=== PATIENT | male | born 1995 | race African-American/Black ===

== ENCOUNTER 2018-11-05 06:00 | Emergency (ER) | payer MEDICAID ==
[~2018-11-05] VITALS: Ht 180.3 cm; Wt 72.6 kg
[2018-11-05 06:04] VITALS: BP 136/86
[2018-11-05] MEDS: NACL 0.9% 1,000 ML IV ONE (06:22)
[2018-11-05] MEDS: ONDANSETRON 4 MG ODT PO ONE (06:28)
[2018-11-05 06:42] LABS: BASOPHILS # (AUTO) 0.1 K/uL (0.00-0.22); BASOPHILS % (AUTO) 0.5 % (0.0-2.0); EOSINOPHILS % (AUTO) 0.1 % (0.0-4.0); HEMOGLOBIN 16.3 g/dL (12.0-18.0); LYMPHOCYTES # (AUTO) 1.1 K/uL (2.0-11.5); LYMPHOCYTES % (AUTO) 10.4 % (20.5-51.1); MEAN CORPUSCULAR HEMOGLOBIN 31 pg (27-31); MEAN CORPUSCULAR HGB CONC 34 g/dL (33-37); MONOCYTES # (AUTO) 0.4 K/uL (0.8-1.0); MONOCYTES % (AUTO) 3.3 % (1.7-9.3); NEUTROPHILS # (AUTO) 9.4 K/uL (1.8-7.7); NEUTROPHILS % (AUTO) 85.7 % (42.2-75.2); PLATELET COUNT (AUTO) 253 K/uL (140-450); RED BLOOD CELL COUNT(AUTO) 5.27 MIL/uL (4.20-6.10); RED CELL DISTRIBUTION WIDTH 13.1 % (11.6-13.7); WHITE BLOOD COUNT (AUTO) 10.9 K/uL (4.8-10.8)
[2018-11-05] MEDS: PROMETHAZINE 25 MG/ML VIAL IVP ONE (06:43)
[2018-11-05 06:51] LABS: ANION GAP 15.6 (8-16); CARBON DIOXIDE 28.7 mmol/L (21-32); POTASSIUM 3.3 mmol/L (3.5-5.1)
[2018-11-05] MEDS: KETOROLAC 30 MG/ML VIAL IVP ONE (06:56)
[2018-11-05 06:57] LABS: TOTAL BILIRUBIN 0.9 mg/dL (0.0-1.0)
[2018-11-05] MEDS: MORPHINE SULFATE 4 MG/ML SYR IVP ONE (07:16)
[2018-11-05] MEDS: NACL 0.9% 1,000 ML IV SCH (07:18)
[2018-11-05 07:49] VITALS: BP 114/87
== END 2018-11-05 07:49 | disposition home or self-care (01) ==
LOC: MED 06:00
DX: R10.12 Left upper quadrant pain (principal); R11.2 Nausea with vomiting, unspecified; R19.7 Diarrhea, unspecified; R50.9 Fever, unspecified; F17.200 Nicotine dependence, unspecified, uncomplicated
CPT/HCPCS: 36415; 80053; 83690; 85025; 96361; 96374; 96375; 99283; J1885; J2270; J2550; Q0162; J7030

== ENCOUNTER 2019-03-01 16:37 | Inpatient (IN) | payer MEDICAID ==
[~2019-03-01] VITALS: Ht 180.3 cm; Wt 76.3 kg
[2019-03-01 16:45] VITALS: BP 152/106
--- NOTE | 2019-03-01 17:05 | NUR ---
c/o generalized abdominal pain with repeated emesis/ dry heaving, severe nauea x yesterday denies heavy etoh use but admits to daily marijuana use
[2019-03-01] MEDS ORDERED: KETOROLAC 30 MG/ML VIAL IVP ONE (17:10)
[2019-03-01] MEDS ORDERED: diphenhydrAMINE 50 MG/ML VIAL IVP ONE (17:10)
[2019-03-01] MEDS ORDERED: METOCLOPRAMIDE 10 MG/2 ML INJ VIAL IVP ONE (17:10)
[2019-03-01] MEDS ORDERED: NACL 0.9% 1,000 ML IV ONE ×2 (17:10→18:35)
[2019-03-01 17:28] LABS: BASOPHILS % (AUTO) 0.2 % (0.0-2.0); HEMATOCRIT 51.2 % (36-52); HEMOGLOBIN 17.9 g/dL (12.0-18.0); LYMPHOCYTES # (AUTO) 1.2 K/uL (2.0-11.5); LYMPHOCYTES % (AUTO) 6.8 % (20.5-51.1); MEAN CORPUSCULAR HEMOGLOBIN 31 pg (27-31); MEAN CORPUSCULAR HGB CONC 35 g/dL (33-37); MEAN CORPUSCULAR VOLUME 88.9 fL (80-94); MONOCYTES # (AUTO) 1.7 K/uL (0.8-1.0); NEUTROPHILS # (AUTO) 14.4 K/uL (1.8-7.7); PLATELET COUNT (AUTO) 318 K/uL (140-450); RED BLOOD CELL COUNT(AUTO) 5.76 MIL/uL (4.20-6.10); RED CELL DISTRIBUTION WIDTH 12.6 % (11.6-13.7); WHITE BLOOD COUNT (AUTO) 17.3 K/uL (4.8-10.8)
--- NOTE | 2019-03-01 17:32 | NUR ---
labs drawn at iv start and handed to norman lab tester
[2019-03-01 17:44] LABS: ALBUMIN 5.5 g/dL (3.4-5.0); CARBON DIOXIDE 29.7 mmol/L (21-32); POTASSIUM 3.7 mmol/L (3.5-5.1); TOTAL BILIRUBIN 1.2 mg/dL (0.0-1.0)
--- NOTE | 2019-03-01 18:27 | NUR ---
speaking with pt---pt's creatinine level at 3 admits n/v reduced at this time
--- NOTE | 2019-03-01 18:40 | NUR ---
UA SENT TO LAB
[2019-03-01 18:45] LABS: APPEARANCE,URINE HAZY (CLEAR); BILIRUBIN,URINE 2+ (NEGATIVE); BLOOD, URINE TRACE-L (NEGATIVE); COLOR,URINE YELLOW (YELLOW); LEUKOCYTE ESTERASE ,URINE 1+ (NEGATIVE); NITRITE, URINE NEGATIVE (NEGATIVE); PH,URINE 5.5 (5.0-9.0); UGLUCOSE NEGATIVE (NEGATIVE)
[2019-03-01 18:50] LABS: WBC,URINE 20-60 /HPF (0-5)
[2019-03-01] MEDS ORDERED: ACETAMINOPHEN 325 MG TAB PO PRN (19:00)
[2019-03-01] MEDS ORDERED: LORazepam 2 MG/ML VIAL IM/IVP PRN (19:00)
[2019-03-01] MEDS ORDERED: DOCUSATE SODIUM 100 MG GELCAP PO PRN (19:00)
[2019-03-01] MEDS ORDERED: ZOLPIDEM 5 MG TAB PO PRN (19:00)
[2019-03-01] MEDS ORDERED: ONDANSETRON 4 MG/2 ML VIAL IM/IVP PRN (19:00)
[2019-03-01] MEDS ORDERED: MORPHINE SULFATE 2 MG/ML SYR IVP PRN (19:00)
[2019-03-01] MEDS ORDERED: HYDROcodone/APAP 5/325 MG 1 TAB TAB PO PRN (19:00)
[2019-03-01] MEDS ORDERED: ONDA4TAB PO (19:05)
[2019-03-01] MEDS ORDERED: PHE25S PO (19:05)
[2019-03-01] MEDS ORDERED: HYDR-5092 PO (19:05)
--- NOTE | 2019-03-01 19:17 | NUR ---
RECEIVED REPORT FROM CRUZ KINSEY.
--- NOTE | 2019-03-01 19:20 | NUR ---
PT RETURN FROM RAD.
--- NOTE | 2019-03-01 19:46 | NUR ---
Patient will be admitted to care of Dr. Ramirez. Admited to MS. Will go to room 119-B. Belongings list completed. Report to CRUZ Nieto.
[2019-03-01] MEDS ORDERED: NACL 0.9% 500 ML IV ONE (19:50)
--- NOTE | 2019-03-01 19:50 | NUR ---
Patient arrived in unit via wheelchair, accompanied by PROVIDER RELATIONS MANAGER and mother. Patient was able to ambulate from wheelchair to bed with no assistance. Patient is A/Ox4, able to make needs known, ambulatory. Introduced self, updated board, oriented patient to room and hospital environment. Chief complaint of abdominal pain, nausea and vomiting x 1 day, diagnosis is abdominal pain, nausea and vomiting, acute kidney injury. IV site on left antecubital, 20 gauge, intact, running IVF. Skin intact. Vitals upon admission are as follows: BP 129/79, RR 16, HR 89, Temp 98.3, O2Sat 98% on room air. Bed in the lowest position, call light within reach. Initial assessment done. Will continue to monitor.
[2019-03-01] MEDS ORDERED: KETOROLAC 15 MG/ML VIAL IVP PRN (20:15)
[2019-03-01 20:41] LABS: PROTHROMBIN TIME 10.8 secs (10.8-13.4)
[2019-03-01 20:48] LABS: MAGNESIUM 2.7 mg/dL (1.8-2.4); PHOSPHORUS 4.2 mg/dL (2.5-4.9); THYROID STIMULATING HORMONE 1.25 uIU/mL (0.34-3.74)
[2019-03-01] MEDS ORDERED: ALUMINUM HYD/MAG/SIMETHICONE 30 ML UDC PO SCH (21:00)
[2019-03-01] MEDS ORDERED: DICYCLOMINE HCL LIQUID 10 MG/5 ML UDC PO SCH (21:00)
[2019-03-01] MEDS ORDERED: LIDOCAINE VISCOUS 2% 20 ML UDC PO SCH (21:00)
[2019-03-01] MEDS: metroNIDAZOLE 500 MG/NS PREMIX 100 ML IV SCH (21:53)
[2019-03-01] MEDS: DEXT 5% /NACL 0.9% 1,000 ML IV SCH (21:53)
--- NOTE | 2019-03-01 21:55 | NUR ---
Due meds given, tolerated well.
[2019-03-01] MEDS ORDERED: cefTRIAXone 1,000 MG VIAL ONE (22:29)
--- NOTE | 2019-03-01 23:40 | NUR ---
Vitals taken, no SOB or distress noted.
[2019-03-02] VITALS: BP 127/74
--- NOTE | 2019-03-02 02:02 | NUR ---
Checks made; patient asleep, eyes closed, visible chest rise and fall noted. Patient sleeping on left lateral side.
[2019-03-02] MEDS: DEXT 5% /NACL 0.9% 1,000 ML IV SCH (03:42)
--- NOTE | 2019-03-02 04:45 | NUR ---
Rounds done, no distress noted.
[2019-03-02] MEDS: metroNIDAZOLE 500 MG/NS PREMIX 100 ML IV SCH (05:03)
--- NOTE | 2019-03-02 06:22 | NUR ---
Patient asleep, eyes closed, visible chest rise and fall noted.
[2019-03-02] MEDS ORDERED: NACL 0.9% 1,000 ML IV SCH (06:45)
[2019-03-02 07:16] LABS: CHOL/HDL RATIO 6.1 (1-4.5)
--- NOTE | 2019-03-02 07:25 | NUR ---
Endorsed patient to AM shift RN for continuity of care; patient in stable condition.
--- NOTE | 2019-03-02 07:26 | NUR ---
RECEIVED ENDORSEMENT FROM BUTTON SEWING MACHINE OPERATOR NURSE. PT IS AAOX4, RESPIRATIONS ARE EVEN AND UNLABORED ON ROOM AIR. DENIES ANY N/V OR ABDOMINAL PAIN. LEFT AC 20 G IV INTACT, PATENT AND INFUSING IVF. PLAN OF CARE WAS REVIEWED WITH PT. PT VERBALIZED UNDERSTANDING. SAFETY MEASURES IN PLACE, CALL LIGHT WITHIN REACH. WILL CONTINUE TO MONITOR.
[2019-03-02 08:00] VITALS: BP 111/60
[2019-03-02] MEDS ORDERED: PANTOPRAZOLE 40 MG INJ VIAL IVP SCH (09:00)
--- NOTE | 2019-03-02 10:05 | NUR ---
PT WISHES TO BE DISCHARGED. DR. BOND HAS BEEN MADE AWARE.
--- NOTE | 2019-03-02 11:30 | NUR ---
Pt verbalized he wants to go home because he feels better. Dr. Victor at bedside to speak with pt.
--- NOTE | 2019-03-02 12:30 | NUR ---
PT LEFT AMA AT THIS TIME. ABLE TO AMBULATE OFF UNIT WITH STEADY GAIT. LEFT AC IV REMOVED, NO BLEEDINGS, CANNULA INTACT. ALL BELONGINGS WITH PT UPON DEPARTURE. PT SIGNED AMA FORM.
[2019-03-03 06:29] LABS: T4 (THYROXINE) 8.3 ug/dL (4.5-12.0)
== END 2019-03-02 12:30 | disposition left against medical advice (07) | DRG 720 ==
LOC: MED 16:37 → MTU 19:05 → UNDOADMIN 19:05 → MTU 19:41
PROVIDERS: ADMIT General Practice; ATTEND General Practice
DX: A41.9 Sepsis, unspecified organism (principal); N17.0 Acute kidney failure with tubular necrosis; N39.0 Urinary tract infection, site not specified; Z53.21 Procedure and treatment not carried out due to patient leaving prior to being seen by health care provider; F17.210 Nicotine dependence, cigarettes, uncomplicated; E87.8 Other disorders of electrolyte and fluid balance, not elsewhere classified; E83.52 Hypercalcemia; R73.9 Hyperglycemia, unspecified; R65.20 Severe sepsis without septic shock; E86.0 Dehydration; K92.9 Disease of digestive system, unspecified; F12.188 Cannabis abuse with other cannabis-induced disorder; I10 Essential (primary) hypertension; E83.41 Hypermagnesemia; E78.5 Hyperlipidemia, unspecified; Z79.899 Other long term (current) drug therapy
CPT/HCPCS: 36415; 71045; 76705; 80053; 81001; 82150; 83036; 83605; 83690; 83735; 83880; 84100; 84436; 84443; 84484; 85025; 85610; 85730; 87040; 87081; 87086; 93005; 96361; 96374; 96375; 99285; J0696; J1200; J1885; J2765; J3490; J7042; J7060; Q0092

== ENCOUNTER 2019-03-03 14:18 | Emergency (ER) | payer MEDICAID ==
[~2019-03-03] VITALS: Ht 180.3 cm; Wt 79.4 kg
[~2019-03-03 14:18] MED LIST: HYDR-5092 PO; ONDA4TAB PO; PHE25S PO
[2019-03-03 14:24] VITALS: BP 118/101
--- NOTE | 2019-03-03 14:35 | NUR ---
BIB MOTHER. PT AAO X4 C/O N/V & RUQ ABDOMINAL PAIN 07/28. DISCHARGE FROM [facility] HERE YESTERDAY. PT STATES DIZZINES. STEADY GAIT. PT PLACED ON FULL PUBLIC WORKS MANAGER. HOB UP BED SIDE RAILS UP X1. ON LOW BED POSITION, LOCKED. ER MADE AWARE OF PT STATUS.
--- NOTE | 2019-03-03 14:35 | NUR ---
PT AMB TO BED 1
--- NOTE | 2019-03-03 14:40 | NUR ---
PT UNABLE TO GIVE URINE SPECIME AT THIS TIME. WILL TRY AGAIN LATER
[2019-03-03] MEDS ORDERED: ONDANSETRON 4 MG/2 ML VIAL IVP ONE (14:50)
[2019-03-03] MEDS ORDERED: FAMOTIDINE 20 MG/2 ML VIAL IVP ONE (14:50)
[2019-03-03] MEDS ORDERED: DICYCLOMINE HCL LIQUID 20 MG, ALUMINUM HYD/MAG/SIMETHICONE 30 ML, LIDOCAINE VISCOUS 2% ... PO ONE ×3 (14:50)
--- NOTE | 2019-03-03 15:00 | NUR ---
MEDICATED PER ERMDS ORDER, TOLERATED WELL.
[2019-03-03 15:15] LABS: BASOPHILS % (AUTO) 0.3 % (0.0-2.0); EOSINOPHILS # (AUTO) 0.1 K/uL (0-0.4); EOSINOPHILS % (AUTO) 0.6 % (0.0-4.0); HEMATOCRIT 43.5 % (36-52); LYMPHOCYTES # (AUTO) 1.8 K/uL (2.0-11.5); LYMPHOCYTES % (AUTO) 15.8 % (20.5-51.1); MEAN CORPUSCULAR HEMOGLOBIN 31 pg (27-31); MEAN CORPUSCULAR HGB CONC 35 g/dL (33-37); MEAN CORPUSCULAR VOLUME 89.7 fL (80-94); MONOCYTES # (AUTO) 1.1 K/uL (0.8-1.0); MONOCYTES % (AUTO) 10.1 % (1.7-9.3); NEUTROPHILS # (AUTO) 8.3 K/uL (1.8-7.7); NEUTROPHILS % (AUTO) 73.2 % (42.2-75.2); PLATELET COUNT (AUTO) 243 K/uL (140-450); RED BLOOD CELL COUNT(AUTO) 4.85 MIL/uL (4.20-6.10); RED CELL DISTRIBUTION WIDTH 12.3 % (11.6-13.7); WHITE BLOOD COUNT (AUTO) 11.3 K/uL (4.8-10.8)
[2019-03-03] MEDS ORDERED: NACL 0.9% 1,000 ML IV ONE (15:25)
[2019-03-03] MEDS ORDERED: DICYCLOMINE 20 MG/2 ML VIAL IM ONE ×2 (15:40→15:55)
[2019-03-03 15:41] LABS: ALBUMIN 4.6 g/dL (3.4-5.0); ANION GAP 14.5 (8-16); CARBON DIOXIDE 28.5 mmol/L (21-32); CREATININE 1.1 mg/dL (0.7-1.3); TOTAL BILIRUBIN 1.5 mg/dL (0.0-1.0)
[2019-03-03] MEDS ORDERED: MORPHINE SULFATE 2 MG/ML SYR IVP ONE (16:00)
[2019-03-03 16:02] LABS: APPEARANCE,URINE SL CLOUDY (CLEAR); BILIRUBIN,URINE NEGATIVE (NEGATIVE); BLOOD, URINE NEGATIVE (NEGATIVE); COLOR,URINE YELLOW (YELLOW); LEUKOCYTE ESTERASE ,URINE NEGATIVE (NEGATIVE); NITRITE, URINE NEGATIVE (NEGATIVE); PH,URINE 8.5 (5.0-9.0); UGLUCOSE NEGATIVE (NEGATIVE)
--- NOTE | 2019-03-03 16:10 | NUR ---
PT ASLEEP. EASILY AROUSABLE BY NAME. NO SIGNS AND SYMPTOMS OF DISTRESS NOTED. FULL CLEAR SPEECH.
[2019-03-03] MEDS ORDERED: POTASSIUM CHLORIDE 10 MEQ TABER PO SCH (16:40)
[2019-03-03 17:45] VITALS: BP 135/89
--- NOTE | 2019-03-03 17:45 | NUR ---
Patient discharged with v/s stable. Written and verbal after care instructions given and explained. Patient alert, oriented and verbalized understanding of instructions. Ambulatory with steady gait. All questions addressed prior to discharge. ID band removed. Patient advised to follow up with PMD. Rx of Omeprazole given. Patient educated on indication of medication including possible reaction and side effects. Opportunity to ask questions provided and answered.
== END 2019-03-03 17:45 | disposition home or self-care (01) ==
LOC: MED 14:18
DX: K29.70 Gastritis, unspecified, without bleeding (principal); F17.210 Nicotine dependence, cigarettes, uncomplicated; Z79.891 Long term (current) use of opiate analgesic; Z79.899 Other long term (current) drug therapy
CPT/HCPCS: 36415; 80053; 81003; 83690; 85025; 96372; 96374; 96375; 99283; J0500; J2270; J2405; J3490; J7030; 99284

== ENCOUNTER 2019-05-07 20:09 | Emergency (ER) | payer MEDICAID ==
[~2019-05-07] VITALS: Ht 180.3 cm; Wt 81.6 kg
[2019-05-07 20:10] VITALS: BP 129/70
--- NOTE | 2019-05-07 20:26 | NUR ---
23 yo male sweta comes to ed for c/o n/v x20 hours. pt denies fever, or night sweats. pt denies dizziness or tingling. pt has c/o of Right flank pain 10/10 achiness. pt was recently seen in ED x1 week ago. pt states he will have bacterial stomach test this thursday. active bsx4, 300 ml dark green emesis noted. mila locked in lowest position. will update ERMD. hx: nausea NKA
[2019-05-07] MEDS ORDERED: ONDANSETRON 4 MG/2 ML VIAL IVP ONE (20:35)
[2019-05-07] MEDS ORDERED: NACL 0.9% 1,000 ML IV ONE ×2 (20:35→21:40)
--- NOTE | 2019-05-07 21:32 | NUR ---
DR. TABARES @ BEDSIDE
[2019-05-07] MEDS ORDERED: fentaNYL 0.05 MG/ML VIAL IVP ONE (21:40)
--- NOTE | 2019-05-07 22:17 | NUR ---
MOM CONTACT # [phone]. TO CALL PROR TO D/C TO SECOND SHIFT SUPERVISOR PT
[2019-05-07 22:18] LABS: BASOPHILS % (AUTO) 0.3 % (0.0-2.0); EOSINOPHILS % (AUTO) 0.1 % (0.0-4.0); HEMATOCRIT 39.7 % (36-52); HEMOGLOBIN 13.4 g/dL (12.0-18.0); LYMPHOCYTES # (AUTO) 0.6 K/uL (2.0-11.5); LYMPHOCYTES % (AUTO) 3.8 % (20.5-51.1); MEAN CORPUSCULAR HEMOGLOBIN 30 pg (27-31); MEAN CORPUSCULAR HGB CONC 34 g/dL (33-37); MEAN CORPUSCULAR VOLUME 88.9 fL (80-94); MONOCYTES # (AUTO) 0.8 K/uL (0.8-1.0); MONOCYTES % (AUTO) 4.9 % (1.7-9.3); NEUTROPHILS # (AUTO) 14.1 K/uL (1.8-7.7); NEUTROPHILS % (AUTO) 90.9 % (42.2-75.2); PLATELET COUNT (AUTO) 272 K/uL (140-450); RED BLOOD CELL COUNT(AUTO) 4.47 MIL/uL (4.20-6.10); RED CELL DISTRIBUTION WIDTH 12.2 % (11.6-13.7); WHITE BLOOD COUNT (AUTO) 15.5 K/uL (4.8-10.8)
[2019-05-07 22:30] LABS: ANION GAP 16.2 (8-16); POTASSIUM 3.2 mmol/L (3.5-5.1)
[2019-05-07 22:36] LABS: TOTAL BILIRUBIN 0.6 mg/dL (0.0-1.0)
--- NOTE | 2019-05-07 22:51 | NUR ---
PT TAKEN TO RADIOLOGY FOR CT SCAN
--- NOTE | 2019-05-07 23:16 | NUR ---
PT VOIDED 300 ML MICHAEL URINE. URINE SAMPLE TAKEN
[2019-05-07] MEDS ORDERED: ALUMINUM HYD/MAG/SIMETHICONE 30 ML UDC PO ONE (23:25)
[2019-05-07] MEDS ORDERED: FAMOTIDINE 20 MG/2 ML VIAL IVP ONE (23:25)
[2019-05-07] MEDS ORDERED: LIDOCAINE VISCOUS 2% 20 ML UDC PO ONE (23:25)
[2019-05-07] MEDS ORDERED: METOCLOPRAMIDE 10 MG/2 ML INJ VIAL IVP ONE (23:30)
[2019-05-07 23:37] LABS: APPEARANCE,URINE HAZY (CLEAR); BILIRUBIN,URINE NEGATIVE (NEGATIVE); BLOOD, URINE NEGATIVE (NEGATIVE); COLOR,URINE YELLOW (YELLOW); LEUKOCYTE ESTERASE ,URINE NEGATIVE (NEGATIVE); NITRITE, URINE NEGATIVE (NEGATIVE); PH,URINE >=9.0 (5.0-9.0); UGLUCOSE NEGATIVE (NEGATIVE)
[2019-05-07 23:38] LABS: BARBITURATE, URINE NEG. ng/ml (NEG <=200); BENZODIAZEPINE, URINE NEG. ng/mL (NEG <=200); CANNABINOID, URINE POS. ng/mL (NEG <=50); COCAINE, URINE NEG. ng/mL (NEG <=300); OPIATE, URINE NEG. ng/mL (NEG <=2000); PHENCYCLIDINE SCREEN,URINE NEG. ng/mL (NEG <=25)
[2019-05-07 23:49] LABS: RBC,URINE 0-5 /HPF (0-5); WBC,URINE 0-5 /HPF (0-5)
--- NOTE | 2019-05-08 00:43 | NUR ---
MD @ BEDSIDE TALKING TO MOTHER AND PT
[2019-05-08 01:15] VITALS: BP 128/92
--- NOTE | 2019-05-08 01:15 | NUR ---
Patient discharged with v/s stable. Written and verbal after care instructions given and explained. Patient verbalized understanding. Ambulatory with steady gait. All questions addressed prior to discharge. Advised to follow up with PMD.
== END 2019-05-08 01:15 | disposition home or self-care (01) ==
LOC: MED 20:09
DX: K52.9 Noninfective gastroenteritis and colitis, unspecified (principal); F12.10 Cannabis abuse, uncomplicated; Z79.891 Long term (current) use of opiate analgesic; Z79.899 Other long term (current) drug therapy
CPT/HCPCS: 36415; 71045; 74177; 80053; 80305; 81001; 83690; 85025; 96361; 96374; 96375; 99284; J2405; J2765; J3010; J3490; J7030; Q9967

== ENCOUNTER 2019-09-10 14:59 | Emergency (ER) | payer MEDICAID ==
[~2019-09-10] VITALS: Ht 180.3 cm; Wt 77.1 kg
[2019-09-10 15:02] VITALS: BP 147/88
--- NOTE | 2019-09-10 15:08 | NUR ---
Patient ambulated to bed 2. RN evaluating patient at bedside.
--- NOTE | 2019-09-10 15:12 | NUR ---
Dr. Mcconnell is evaluating the patient at bedside.
[2019-09-10] MEDS ORDERED: ONDANSETRON 4 MG/2 ML VIAL IVP ONE (15:50)
[2019-09-10] MEDS ORDERED: NACL 0.9% 1,000 ML IV ONE (15:50)
--- NOTE | 2019-09-10 15:51 | NUR ---
PATIENT COMPLAINS OF NAUSEA, VOMITTING, AND DIARRHEA X 2 DAYS. PATIENT STATES HE HAS BEEN UNABLE TO EAT OR DRINK IN THE PAST 2 DAYS. PATIENT FEELS WEAKNESS, CRAMPING THROUGHOUT BODY. PATIENT AWAKE AND ALERT, RESPIRATION EVEN AND UNLABORED, SKIN NORMAL COLOR, WARM, DRY. ABDOMEN SOFT, FLAT, NONTENDER. HX - GASTROPARESIS
[2019-09-10] MEDS ORDERED: HALOPERIDOL IM 5 MG/ML VIAL IM ONE (16:05)
[2019-09-10 16:13] LABS: BASOPHILS % (AUTO) 0.2 % (0.0-2.0); EOSINOPHILS % (AUTO) 0.1 % (0.0-4.0); HEMATOCRIT 51.1 % (36-52); HEMOGLOBIN 17.3 g/dL (12.0-18.0); LYMPHOCYTES # (AUTO) 1.4 K/uL (2.0-11.5); LYMPHOCYTES % (AUTO) 7.8 % (20.5-51.1); MEAN CORPUSCULAR HEMOGLOBIN 31 pg (27-31); MEAN CORPUSCULAR HGB CONC 34 g/dL (33-37); MEAN CORPUSCULAR VOLUME 90.9 fL (80-94); MONOCYTES # (AUTO) 2.2 K/uL (0.8-1.0); MONOCYTES % (AUTO) 11.8 % (1.7-9.3); NEUTROPHILS # (AUTO) 14.8 K/uL (1.8-7.7); NEUTROPHILS % (AUTO) 80.1 % (42.2-75.2); PLATELET COUNT (AUTO) 302 K/uL (140-450); RED BLOOD CELL COUNT(AUTO) 5.62 MIL/uL (4.20-6.10); RED CELL DISTRIBUTION WIDTH 14.1 % (11.6-13.7); WHITE BLOOD COUNT (AUTO) 18.5 K/uL (4.8-10.8)
[2019-09-10 16:34] LABS: ALBUMIN 6.3 g/dL (3.4-5.0); ANION GAP 23.6 (8-16); ASPARTATE AMINOTRANSFERASE 18 U/L (15-37); CARBON DIOXIDE 28.2 mmol/L (21-32); CHLORIDE 89 mmol/L (98-107); GFR ARICAN-AMERICAN 21 mL/min (>90); GLUCOSE 102 mg/dL (74-106); POTASSIUM 3.8 mmol/L (3.5-5.1); SODIUM SERUM 137 mmol/L (136-145); TOTAL BILIRUBIN 1.1 mg/dL (0.0-1.0); UREA NITROGEN, BLOOD 48 mg/dL (7-18)
[2019-09-10 16:38] LABS: BARBITURATE, URINE NEG. ng/ml (NEG <=200); BENZODIAZEPINE, URINE NEG. ng/mL (NEG <=200); CANNABINOID, URINE POS. ng/mL (NEG <=50); COCAINE, URINE NEG. ng/mL (NEG <=300); OPIATE, URINE NEG. ng/mL (NEG <=2000); PHENCYCLIDINE SCREEN,URINE NEG. ng/mL (NEG <=25)
[2019-09-10 16:46] LABS: CREATININE 4.5 mg/dL (0.7-1.3); SALICYLATE < 2.8 mg/dL (2.8-20.0)
[2019-09-10 16:50] LABS: ACETAMINOPHEN < 0.5 ug/ml (10-30)
[2019-09-10 17:14] VITALS: BP 145/82
--- NOTE | 2019-09-10 17:15 | NUR ---
Dr Mcconnell at bedside to explain indications of hospital admission, and to explain risks/benefits.
--- NOTE | 2019-09-10 17:25 | NUR ---
Patient does not wish to proceed with medical care recommended by Dr. Mcconnell. Patient given information related to possible complications, up to and including , which could occur as a result of leaving hospital at this time. Patient verbalizes understanding of risks involved leaving against medical advice. Patient has signed AMA form. Pt ambulated out of ER at this time.
== END 2019-09-10 17:25 | disposition left against medical advice (07) ==
LOC: MED 14:59
DX: R10.84 Generalized abdominal pain (principal); R11.2 Nausea with vomiting, unspecified; R19.7 Diarrhea, unspecified; Z79.899 Other long term (current) drug therapy
CPT/HCPCS: 36415; 74022; 80053; 80305; 83690; 85025; 93005; 96361; 96372; 96374; 99284; G0480; G0482; J1630; J2405

== ENCOUNTER 2019-09-10 23:00 | Emergency (ER) | payer MEDICAID ==
[~2019-09-10] VITALS: Ht 180.3 cm; Wt 64.4 kg
[2019-09-10 23:04] VITALS: BP 153/98
--- NOTE | 2019-09-10 23:11 | NUR ---
PT AMBULATED TO BED #6
--- NOTE | 2019-09-10 23:12 | NUR ---
C/O NAUSEA AND APPETITE CHANGES. PT SEEN IN ED ON 09/10, PT REPORTS BEING TOLD HE HAD ACUTE KIDNEY INJURY AND LEFT AMA DUE TO NEEDING TO PICKUP HIS CHILD. PT NOW WANTS TO BE RECHECKED. PT DENIES ANY DENIES FLANK PAIN, DYSURIA, AND HEMATURIA. a & O X4. VSS. STEADY GAIT. ABLE TO URINATE. DENIES ANY PAIN OR DYSURIA OR BLOOD IN URINE. LUNG SOUNDS ARE CLEAR ALL THROUGHOUT. HEART SOUNDS S1S2 PRESENT. NKA DENIES PMH
[2019-09-10] MEDS ORDERED: NACL 0.9% 1,000 ML IV ONE (23:20)
--- NOTE | 2019-09-10 23:45 | NUR ---
TRALKED TO COLEEN, ORCHESTRA TEACHER FROM [facility]. COLEEN SAID TO HOLD OFF ON THE ADMIT FOR PT THAT THEY ARE GOING TO TRY AND TRANSFER HIM AND GET HIM ON THERE NETWORK. COLEEN SAID HE'LL CALL BACK ON THE UPDATE FOR PT CARE.
--- NOTE | 2019-09-11 00:55 | NUR ---
PT IS GETTING TRANSFERRED TO [facility] TO BED #201A. TRANSPORT ETA IS 90MINS. VSS.
--- NOTE | 2019-09-11 01:32 | NUR ---
GAVE REPORT TO JENI, PRIVACY DIRECTOR FROM [facility]. PT IS READY FOR TRANSFER, JUST WAITING ON TRANSPORTATION TO ARRIVE.
[2019-09-11 02:55] VITALS: BP 134/77
--- NOTE | 2019-09-11 02:55 | NUR ---
Patient to be transferred to [facility]. Is being transferred due to INSURANCE. Receiving facility has accepting physician and available space. ER physician has signed transfer form. Patient or responsible alliance party has agreed to transfer and signed form. Patient belongings inventoried and will be sent with patient. Copy of nursing notes, lab reports, EKG, Physicians Orders and X-rays to be sent with patient. Report called to JENI, TIME STAMP ASSEMBLER at receiving facility. [facility] ambulance service PICKED UP PT AND TRANSFERED TO FACILITY AT THIS TIME.
== END 2019-09-11 02:55 | disposition short-term general hospital (02) ==
LOC: MED 23:00
DX: F12.90 Cannabis use, unspecified, uncomplicated (principal); G43.A0 Cyclical vomiting, in migraine, not intractable; E86.0 Dehydration; N17.9 Acute kidney failure, unspecified; Z71.6 Tobacco abuse counseling; Z79.899 Other long term (current) drug therapy
CPT/HCPCS: 81002; 96360; 99285; J7030